=== PATIENT | male | born 1965 | race Caucasian/White ===

== ENCOUNTER 2017-08-12 14:44 | Emergency (ER) | payer OTHER ==
[~2017-08-12] VITALS: Ht 193 cm; Wt 79.4 kg
[~2017-08-12 14:44] MED LIST: IBUPROFEN 800800 M1 PO; MEDROLDOSEPACK PO; NOHOMEMEDICATIONS; TRAMADOL 50 MG50 MG PO
[2017-08-12 15:30] LABS: INFLUENZA A ANTIGEN None Detected (None Detect); INFLUENZA B ANTIGEN None Detected (None Detect)
[2017-08-12 16:24] LABS: ABSOLUTE LYMPHOCYTES 0.5 thou/uL (0.8-5.3); ABSOLUTE MONOCYTES 0.7 thou/uL (0.0-1.2); ABSOLUTE NEUTROPHILS 3.1 thou/uL (1.6-8.1); BASOPHILS 0.7 %; EOSINOPHILS 0.4 %; HEMATOCRIT 51.6 % (42.0-52.0); HEMOGLOBIN 17.8 gm/dL (14.0-18.0); LYMPHOCYTES 12.3 %; MCH 31.2 pg (26.0-34.0); MCHC 34.6 g/dL (28.0-37.0); MCV 90.2 fL (80.0-100.0); MONOCYTES 15.9 %; MPV 7.6 fl. (7.2-11.1); NUCLEATED RBCS 0 /100WBC; PLATELET COUNT* 117 thou/uL (150-400); POLYS 70.7 %; RBC 5.72 mil/uL (4.50-6.00); RDW-CV 13.4 % (10.5-14.5); WBC 4.4 thou/uL (4.0-11.0)
[2017-08-12 16:28] LABS: CALCIUM 9.1 mg/dL (8.5-10.1); CREATININE 0.9 mg/dL (0.6-1.3); POTASSIUM 3.8 mmol/L (3.5-5.1)
[2017-08-12 16:33] LABS: ALBUMIN 3.8 g/dL (3.4-5.0); TOTAL BILIRUBIN 0.4 mg/dL (<0.1-1.0)
[2017-08-12 17:37] LABS: URINE BLOOD 1+ (Negative); URINE CLARITY CLEAR; URINE COLOR YELLOW; URINE GLUCOSE-RANDOM NEGATIVE (Negative); URINE KETONES TRACE (Negative); URINE LEUKOCYTES NEGATIVE (Negative); URINE NITRITE NEGATIVE (Negative); URINE PROTEIN 2+ (Negative); URINE SPECIFIC GRAVITY 1.025 (1.005-1.030); URINE UROBILINOGEN 0.2 E.U./dl (0.2-1.0)
[2017-08-12 17:40] LABS: ICTOTEST (BILI CONFIRMATORY) Positive (Negative); URINE BILIRUBIN 1+ (Negative)
[2017-08-12 17:52] LABS: COARSE GRANULAR CASTS 0-3 Few /LPF (None Seen); FINE GRANULAR CASTS 0-3 Few /LPF (None Seen); MUCUS >6 Heavy strn/LPF (None Seen); SQUAMOUS 0-3 Few /LPF (0-3)
[2017-08-12 17:53] LABS: HYALINE CASTS >10 Many /LPF (None Seen); URINE RBC 0-2 Rare /HPF (0-2)
[2017-08-12 17:54] LABS: AMORPHOUS URATES Few /LPF (None Seen); BACTERIA 1-9 Few /HPF (None Seen); URINE WBC 0-5 Rare /HPF (0-5)
[2017-08-12] MEDS ORDERED: ZOFRAN ODT4 MG PO (18:14)
[2017-08-12] MEDS ORDERED: CIPRO500 MG PO (18:14)
[2017-08-12 18:35] VITALS: BP 133/80
== END 2017-08-12 18:35 | disposition home or self-care (01) ==
LOC: M.ERS 14:44
PROVIDERS: Family Medicine; Physician Assistant
DX: N30.00 Acute cystitis without hematuria (principal); F17.200 Nicotine dependence, unspecified, uncomplicated; F10.99 Alcohol use, unspecified with unspecified alcohol-induced disorder; F12.10 Cannabis abuse, uncomplicated